=== PATIENT | female | born 1945 | race Caucasian/White ===

== ENCOUNTER 2016-11-04 18:23 | Inpatient (IN) | payer MEDICARE ==
[~2016-11-04] VITALS: Ht 160 cm; Wt 59.9 kg
[2016-11-04 20:26] LABS: BASOPHILS 0.3 % (0-2); EOSINOPHILS 0.4 % (0-7); HEMATOCRIT 36.9 % (36.0-48.0); HEMOGLOBIN 12.4 g/dL (12-16); IMMATURE GRANULOCYTES 0.3 % (0-5); LYMPHOCYTES 11.2 % (15-50); MCH 31.9 pg (26.0-34.0); MCHC 33.6 g/dL (31.0-37.0); MCV 94.9 fL (80.0-100.0); MONOCYTES 6.2 % (2-11); NEUTROPHILS 81.6 % (40-80); PLATELET COUNT 222 10x3/uL (130-400); RBC 3.89 10x6/uL (4.00-5.40); RDW 12.6 % (11.5-14.5); WBC 11.5 10x3/uL (4.8-10.8)
[2016-11-04 20:36] LABS: CALC OSMOLALITY 285 mosm/kg (275-300); CARBON DIOXIDE 27.1 mmol/L (21.0-32.0); CHLORIDE - SERUM 106 mmol/L (98-107); CREATININE - SERUM 0.6 mg/dL (0.6-1.3); GLUCOSE 120 mg/dL (74-106); POTASSIUM - SERUM 3.3 mmol/L (3.5-5.1); SODIUM 143 mmol/L (136-145); UREA NITROGEN 12 mg/dL (7-18); eGFR NON AFRICAN AMERICAN > 90 mL/min (90-120)
--- NOTE | 2016-11-04 20:50 | NUR ---
PT ARRIVED TO FLOOR VIA STRETCHER ESCORTED BY ER STAFF. TRANSFERRED TO BED AND ORIENTED TO ROOM.
--- NOTE | 2016-11-04 21:27 | NUR ---
16 F CULP CATHETER PLACED WITH IMMEDIATE RETURN OF YELLOW URINE. CONNECTED TO IV FLUIDS - NS @ 75ML / HR. HOLD LOVENOX PER DR FELICIANO.
--- NOTE | 2016-11-04 21:28 | NUR ---
PT CONSENTED FOR SURGERY.
--- NOTE | 2016-11-04 21:28 | NUR ---
PRE-OP MEDICATIONS GIVEN PO WITH SIPS OF WATER.
[2016-11-05] VITALS (12 sets, daily range): BP systolic 90–145; BP diastolic 29–54; Ht 160 cm; Wt 59.9 kg
--- NOTE | 2016-11-05 01:50 | NUR ---
REPORT CALLED FROM SURGERY.
--- NOTE | 2016-11-05 01:59 | NUR ---
PT RETURNED FROM SURGERY.
--- NOTE | 2016-11-05 02:03 | NUR ---
RADIOLOGY HERE TO PERFORM XRAY.
[2016-11-05] MEDS ORDERED: TUMS500 MG PO (02:37)
--- NOTE | 2016-11-05 02:38 | NUR ---
GAVE ZOFRAN FOR PT C/O NAUSEA. WILL MONITOR FOR EFFECTIVENESS. CALL LIGHT WITHIN REACH.
--- NOTE | 2016-11-05 07:16 | NUR ---
Patient Name: DORA DUFFY Admission Status: ER Accout number: [id number] Admission Date: 11-04-2016 : 1945 Admission Diagnosis: Attending: HILDA Current LOS: 1 Anticipated DC Date: 11-08-2016 Planned Disposition: Home with Home Health Primary Insurance: MEDICARE A & B Discharge Planning Comments: CM MET WITH PATIENT REGARDING D/C NEEDS AND PLANS. PATIENT STATED SHE LIVES WITH HER SPOUSE (MICHELLE) AND HE WILL DRIVE HER HOME WHEN DISCHARGED. PATIENT STATED THERE IS A RAMP TO ENTER HOME AND NO STAIRS INSIDE. PATIENT IS INDEPENDENT WITH HER CARE AND SPOUSE IS GETTING HER A WALKER TODAY AND HAS A BUILT IN SHOWER CHAIR AT HOME. PATIENTS PCP IS DR. LERMA AND PHARMACY IS [facility]. PATIENT KNOWS SHE NEEDS REHAB BUT WANTS TO TALK TO HER DOCTOR BEFORE DECIDING HER THERAPY. CM WILL CONTINUE TO FOLLOW PATIENT WITH D/C NEEDS AND PLANS. PCP DR. FLORENTIN ALEXANDRE AT [facility] [phone] MICHELLE (SPOUSE) [phone] Hydraulic Operator: Ann Gonzalez Is the patient Alert and Oriented? Yes 0 * How many steps to enter\exit or inside your home? RAMP 0 * PCP DR. LERMA 0 * Pharmacy [facility] AT [facility] 0 * Preadmission Environment Home with Family 0 * ADLs Independent 0 * Equipment Walker 0 * Other Equipment BUILT IN SHOWER CHAIR 0 * List name and contact numbers for known caregivers / representatives who currently or will assist patient after discharge: MICHELLE (SPOUSE) [phone] 0 * Community resources currently utilized None 0 * Additional services required to return to the preadmission environment? Yes 0 * Can the patient safely return to the preadmission environment? Yes 0 * Has this patient been hospitalized within the prior 30 days at any hospital? No 0 Grand Total: 0
--- NOTE | 2016-11-05 07:30 | NUR ---
RECIEVED PT DURING WALKING ROUNDS. PT RESTING IN BED WITH COMPLAINTS OF SLIGHT PAIN IN THE LEFT HIP OF A 4 ON A SCALE OF 1-10. ASSESSMENT DONE PER FLOWSHEET. BED IN LOW POSITION AND CALL LIGHT WITHIN REACH. WILL CONTINUE TO MONITOR.
--- NOTE | 2016-11-05 08:55 | NUR ---
CULP CATH REMOVED PER ORDER AT THIS TIME. PT TOLERATED WELL. 250CC EMPTIED. BED IN LOW POSITION AND CALL LIGHT WITHIN REACH. WILL CONTINUE TO MONITOR.
[2016-11-05 09:36] LABS: HEMATOCRIT 23.7 % (36.0-48.0)
[2016-11-05 09:43] LABS: HEMOGLOBIN 7.9 g/dL (12-16)
--- NOTE | 2016-11-05 11:08 | OP ---
PATIENT NAME: DORA HARRISON MEDICAL RECORD: [id number] :[birth year] LOCATION: D.2226 ADMISSION DATE:11/04/16 SURGEON: TERRY FELICIANO DO DATE OF OPERATION: 11/04/2016 PROCEDURE PERFORMED: Left total hip arthroplasty. PREOPERATIVE DIAGNOSIS: Left displaced femoral neck fracture. POSTOPERATIVE DIAGNOSIS: Left displaced femoral neck fracture. INDICATIONS: Ms. Harrison is a 71-year-old active female, who tripped over a sidewalk today and fell onto her left hip. She had immediate pain and could not bear weight. She has not had hip pain prior to this; however, she is very active. She was then taken to the Emergency Room and seen there and seemed to have a left displaced femoral neck fracture. She had been n.p.o. since noon and decided to proceed forth with her surgery. The decision to give a total hip was made due to the fact that she is active versus doing sameer hip arthroplasty. The risks and benefits of surgery were discussed with her and her , which were present as well as her daughter and they said that proceed forth with the procedure. SURGEON: Terry Feliciano DO. DESCRIPTION OF PROCEDURE: The patient was taken to PACU, marked, and consents were signed. She was then taken to the operative suite, she was given general anesthesia and intubated by anesthesia. She was then placed on the table and a timeout was performed. All parties were in agreement this was correct side and site. The patient was given 1 gram of Ancef preoperatively. After a timeout was performed and everyone is in agreement, the procedure began. A 10-cm incision was made over the tensor fascia ester and dissected carefully down. Incision was made with a 10 blade scalpel and then further down, used a plasma knife down to the fascia with TFL, thus TFL was then cut through with the plasma blade and the anterior fascia was lifted up and off the muscle belly and retractors then put into place. At that time, the rectus muscle was identified and the fascia over it was released and then the fascia just over the ascending branch of the lateral femoral circumflex was removed and the artery and the 2 veins that run along with it, the Aquamantys was used to coagulate them and plasma was used to get through them. Then, the hip capsule was identified and capsulotomy was performed. The fracture was noted at the femoral neck and the left femoral head was extracted at that time and sized. We then began to prep the acetabulum for the acetabular component of the total hip and medialized and then reamed up to a 45 and implanted a 46 cup porous-coated and it was seen to be in good position via x-ray. Then, mary the attention to the femur and the leg was extended and abducted and externally rotated as well to present the femur. A cut was made to freshen up the fracture to be more amenable to the insertion and placement of an implant in the femoral stem. We then began with a InCorta cutter and canal finder, which was done and broaching. We broached up and put a size 12 stem in and was seen to be in varus and that stem was taken out and lateralized more the proximal femur and a 15-stem ended up being put in with Taperloc stem which seemed to be in good position on x-ray and the femur was checked and had no fractures distally either in 40 cup with a minus 6 neck was then placed seemed to be in good position and leg lengths were measured as well and seemed to be adequate. At that time, the site was irrigated and there was no capsular closure done at this time due to the lack of OPERATIVE REPORT [id number] RAY,DORA good thick capsule. The wound was thoroughly irrigated at that time and the fascia of the tensor fascia ester was closed via 0 Vicryl in a [id number] stitches and running locking stitch. The skin was also closed with 2-0 Vicryl in an inverted interrupted fashion and the skin was closed with 4-0 Monocryl and Dermabond was placed over the wound. A Telfa and Tegaderm was placed over the wound. The patient was awakened in the operating room in stable condition. She was typed and crossed for 2 units. Her hematocrit was 26 and estimated blood loss was 1600 mL. She is in PACU for recovery and postoperative x-rays were done there. TRANSINT:[id number] Voice Confirmation ID: [id number] DOCUMENT ID: [id number] TERRY FELICIANO DO at 1108 CC: [id number] DICTATION DATE: 11/05/16140 SUPERVISOR CAR AND YARD: 11/05/16 022 ADM IN [facility] [address] [place] [address]
--- NOTE | 2016-11-05 11:45 | NUR ---
CALL PLACED TO SURGERY AT APPROX [address] FELICIANO ABOUT PT FEELING DIZZY AND LAB RESULTS, DR. FELICIANO ON THE FLOOR AT THIS TIME. PT DOES NOT WANT TO RECIEVE BLOOD UNLESS ABSOULTELY NECESSARY. DR. FELICIANO INFORMED ME TO CALL HIM IF PT HAS ANY CHANGES. WILL CONTINUE TO MONITOR PT. PT SITTING IN CHAIR. CALL LIGHT WITHIN REACH. WILL CONTINUE TO MONITOR.
--- NOTE | 2016-11-05 13:05 | NUR ---
PT PASSED OUT WHEN STANDING UP WITH PT. CALLED INTO ROOM BY VITOR PHYSICAL THERAPIST, PT WAS PALE AND NOT REPSONDING. VITAL SIGNS INITIATED. STIMULATED PT AND PT WOKE UP AND SPOKE. VITAL SIGNS FOLLOWED BP 112/38, 80% O2 ON ROOM AIR, 2L OF O2 APPLIED. 99% ON 2L, RESP 16. SPOKE WITH DR. FELICIANO AT THIS TIME, RECIEVED ORDERS TO CONTACT MEDICAL AND ADMINISTER 1 UNIT OF PRBC'S. PT PLACED BACK IN BED BY PHYSICAL THERAPY. BED IN LOW POSITION AND CALL LIGHT WITHIN REACH. WILL CONTINUE TO MONITOR.
--- NOTE | 2016-11-05 14:05 | NUR ---
FIRST UNIT OF PRBC'S STARTED AT THIS TIME.WITNESSED WITH SERENITY ARVIZU LPN. MONITORED FOR FIRST 15 MINUTES, NO SIGNS OF ACUTE REACTION NOTED. WILL MONITOR PER PROTOCOL.
--- NOTE | 2016-11-05 16:10 | NUR ---
ENTERED PT ROOM AT THIS TIME, NOTED SIGNIFICANT SWELLING TO THE LEFT HIP. ICE APPLIED. RIGHT WRIST IV SWOLLEN, DC'D IV AND BLOOD PRODUCT ADMINISTRATION CONTINUED THROUGH PIV IN THE LEFT AC. DR. FELICIANO NOTIFIED OF SWELLING. WILL CONTINUE TO MONITOR.
[2016-11-05] MEDS ORDERED: HYDROCODON-ACE1 EAC7 PO (16:43)
[2016-11-05] MEDS ORDERED: ELIQUIS2.5 MG PO (16:43)
--- NOTE | 2016-11-05 17:24 | NUR ---
ASSISTED PT TO BEDSIDE COMMODE AT THIS TIME. PT WAS ABLE TO URINATE POST CULP REMOVAL. TRANSFERRED BACK TO BED WITH NO PROBLEMS. WILL CONTINUE TO MONITOR.
--- NOTE | 2016-11-05 18:50 | NUR ---
RISITED IV TO LEFT WRIST AT THIS TIME, 20G X1 ATTEMPT.
--- NOTE | 2016-11-05 20:00 | NUR ---
ASSESMENT PER FLOW SHEET.PT WITHOUT DISTRESS.DRESSING TO LEFT HIP CLEAN,DRY AND INTACT. DENIES PAIN AT PRESENT.ASSIST UP TO BSC AND BACK TO BED.FALL PREVENTION IN PLACE WITH BOX ALARM.DENIES NEEDS.CALL LIGHT IN REACH
[2016-11-06] VITALS (21 sets, daily range): BP systolic 111–145; BP diastolic 34–68
--- NOTE | 2016-11-06 02:46 | NUR ---
RESTING WITHOUT NEEDS,WITHOUT DISTRESS
[2016-11-06 05:44] LABS: BASOPHILS 0.2 % (0-2); EOSINOPHILS 0.1 % (0-7); HEMATOCRIT 20.7 % (36.0-48.0); IMMATURE GRANULOCYTES 0.5 % (0-5); LYMPHOCYTES 17.3 % (15-50); MCH 29.9 pg (26.0-34.0); MCHC 33.8 g/dL (31.0-37.0); MEAN PLATELET VOLUME 10.8 fL (7.4-10.4); MONOCYTES 11.1 % (2-11); NEUTROPHILS 70.8 % (40-80); RDW 16.4 % (11.5-14.5); WBC 8.8 10x3/uL (4.8-10.8)
[2016-11-06 05:53] LABS: MCV 88.5 fL (80.0-100.0); PLATELET COUNT 129 10x3/uL (130-400); RBC 2.34 10x6/uL (4.00-5.40)
[2016-11-06 06:16] LABS: ALBUMIN 2.1 g/dL (3.4-5.0); ALKALINE PHOSPHATASE 44 U/L (46-116); ALT (SGPT) 23 U/L (10-68); CALC OSMOLALITY 274 mosm/kg (275-300); CARBON DIOXIDE 23.6 mmol/L (21.0-32.0); CHLORIDE - SERUM 104 mmol/L (98-107); CREATININE - SERUM 0.5 mg/dL (0.6-1.3); GLUCOSE 141 mg/dL (74-106); POTASSIUM - SERUM 3.1 mmol/L (3.5-5.1); PROTEIN - SERUM 4.7 g/dL (6.4-8.2); SODIUM 137 mmol/L (136-145); UREA NITROGEN 9 mg/dL (7-18); eGFR NON AFRICAN AMERICAN > 90 mL/min (90-120)
--- NOTE | 2016-11-06 07:30 | NUR ---
PATIENT RECEIVED ALERT IN BED TALKING ON PHONE. NO SIGNS OF DISTRESS NOTED. NO NEEDS VOICED. SIDE RAILS UP X2. BED IN LOW POSITION.
--- NOTE | 2016-11-06 08:20 | NUR ---
ALERT IN BED RSTING QUIETLY. NO SIGNS OF DISTRESS NOTED. SCHEDULED MEDICATION AND PRN NORCO FOR PAIN 10 ADMINISTERED. BREAKFAST TRAY SET UP. NO FURTHER NEEDS VOICED. SIDE RAILS UP X2. BED IN IN LOW POSITION. CALL LIGHT IN REACH.
--- NOTE | 2016-11-06 09:55 | NUR ---
INCENTIVE SPIROMETER AND TEACHING ON USE PROVIDED. STATES UNDERSTANDING. DEMONSTRATES CORRECT USE.
--- NOTE | 2016-11-06 10:03 | NUR ---
FIRST UNIT PRBC INITIATED PER ORDER TO LEFT WRIST IV. IV PATENT. NO REDNESS OR INFLAMMATION NOTED. VITAL SIGNS STABLE. FAMILY PRESENT AT BEDSIDE. SIDE RAILS UP X2. BED IN LOW POSITION. CALL LIGHT IN REACH.
--- NOTE | 2016-11-06 12:48 | NUR ---
FIRST UNIT PRBC COMPLETE. WELL TOLERATED. VITAL SIGNS STABLE. FAMILY AT BEDSIDE. SIDE RAILS UP X2. BED IN LOW POSITION. CALL LIGHT IN REACH.
--- NOTE | 2016-11-06 13:55 | NUR ---
SECOND UNIT PRBC INITIATED. VITAL SIGNS STABLE. IV PATENT. DENIES NEEDS. FAMILY AT BEDSIDE. SIDE RAILS UP X2. BED IN LOW POSITION. CALL LIGHT IN REACH.
--- NOTE | 2016-11-06 17:10 | NUR ---
PATIENT REPOSITIONED IN BED. TOLERATED WELL. DINNER TRAY SET UP. PRBC COMPLETE. VITAL SIGNS STABLE. SIDE RAILS UP X2. BED IN LOW POSITION. CALL LIGHT IN REACH.
--- NOTE | 2016-11-06 19:30 | NUR ---
ASSISTED PT TO BSC AND BACK TO BED. BED IN LOWEST POSITION AND CALL LIGHT WITHIN REACH. ENCOURAGED THE PT TO CALL IF SHE HAS FURTHER NEEDS.
[2016-11-07] VITALS: BP 142/50
[2016-11-07 06:48] LABS: BASOPHILS 0.2 % (0-2); EOSINOPHILS 0.1 % (0-7); IMMATURE GRANULOCYTES 0.4 % (0-5); LYMPHOCYTES 12.6 % (15-50); MCH 30.4 pg (26.0-34.0); MCHC 35.7 g/dL (31.0-37.0); MEAN PLATELET VOLUME 11.1 fL (7.4-10.4); NEUTROPHILS 75.7 % (40-80); PLATELET COUNT 121 10x3/uL (130-400); RDW 15.7 % (11.5-14.5); WBC 10.3 10x3/uL (4.8-10.8)
[2016-11-07 06:51] LABS: HEMOGLOBIN 8.9 g/dL (12-16); RBC 2.93 10x6/uL (4.00-5.40)
[2016-11-07 06:52] LABS: HEMATOCRIT 24.9 % (36.0-48.0)
[2016-11-07 07:08] LABS: ALBUMIN 1.9 g/dL (3.4-5.0); ALKALINE PHOSPHATASE 56 U/L (46-116); BILIRUBIN - TOTAL 0.52 mg/dL (0.2-1.3); CALCIUM 7.4 mg/dL (8.5-10.1); CARBON DIOXIDE 28.2 mmol/L (21.0-32.0); CHLORIDE - SERUM 102 mmol/L (98-107); CREATININE - SERUM 0.5 mg/dL (0.6-1.3); GLUCOSE 127 mg/dL (74-106); PROTEIN - SERUM 5.2 g/dL (6.4-8.2); SODIUM 136 mmol/L (136-145); eGFR NON AFRICAN AMERICAN > 90 mL/min (90-120)
[2016-11-07 07:20] LABS: CALC OSMOLALITY 271 mosm/kg (275-300); UREA NITROGEN 6 mg/dL (7-18)
[2016-11-07 07:21] LABS: ALT (SGPT) 60 U/L (10-68); POTASSIUM - SERUM 2.7 mmol/L (3.5-5.1)
--- NOTE | 2016-11-07 07:35 | NUR ---
PATIENT RECEIVED ALERT IN LOW LANDIS POSITION. NO SIGNS OF DISTRESS NOTED. DENIES NEEDS. SIDE RAILS UP X2. BED IN LOW POSITION. CALL LIGHT IN REACH.
[2016-11-07 07:52] VITALS: BP 137/53
--- NOTE | 2016-11-07 09:02 | NUR ---
ALERT IN HIGH LANDIS POSITION. NO SIGNS OF DISTRESS NOTED. SCHEDULED MEDICATION ADMINISTERED. DENIES NEEDS. SIDE RAILS UP X2. BED IN LOW POSITION. CALL LIGHT IN REACH.
--- NOTE | 2016-11-07 11:00 | NUR ---
SITTING UP IN CHAIR AT BEDSIDE. NO SIGNS OF DISTRESS NOTED. SCD SLEEVES AND EJ HOSE REMOVED. SKIN TO LOWER LEGS WNL. DENIES NEEDS. CALL LIGHT IN REACH.
[2016-11-07 12:35] VITALS: BP 130/50
--- NOTE | 2016-11-07 14:30 | NUR ---
PATIENT IN MID LANDIS POSITION RESTING QUIETLY WITH EYES CLOSED. RESPIRATIONS EVEN AND UNLABORED. SIDE RAILS UP X2. BED IN LOW POSITION. CALL LIGHT IN REACH.
--- NOTE | 2016-11-07 15:30 | NUR ---
PATIENT SITTING UP IN CHAIR AT BEDSIDE. NO SIGNS OF DISTRESS NOTED. CALL LIGHT IN REACH.
[2016-11-07 15:53] VITALS: BP 106/48
--- NOTE | 2016-11-07 17:30 | NUR ---
ALERT IN BED EATING DINNER. TOLERATING WELL. DENIES NEEDS. SIDE RAILS UP X2. BED IN LOW POSITION. CALL LIGHT IN REACH.
--- NOTE | 2016-11-07 19:30 | NUR ---
PT RESTING IN BED AND DENIES NEEDS AT THIS TIME. BED IN LOWEST POSITION, CALL LIGHT WITHIN REACH, AND BOX ALARM ON AND FUNCTIONING. ENCOURAGED THE PT TO CALL IF SHE HAS NEEDS.
[2016-11-07 20:00] VITALS: BP 129/54
[2016-11-08 04:00] VITALS: BP 100/47
[2016-11-08 05:42] LABS: BASOPHILS 0.1 % (0-2); EOSINOPHILS 0.5 % (0-7); HEMATOCRIT 24.2 % (36.0-48.0); HEMOGLOBIN 8.6 g/dL (12-16); IMMATURE GRANULOCYTES 0.4 % (0-5); LYMPHOCYTES 15.7 % (15-50); MCH 30.7 pg (26.0-34.0); MCHC 35.5 g/dL (31.0-37.0); MCV 86.4 fL (80.0-100.0); MEAN PLATELET VOLUME 10.2 fL (7.4-10.4); MONOCYTES 10.5 % (2-11); NEUTROPHILS 72.8 % (40-80); PLATELET COUNT 145 10x3/uL (130-400); RDW 15.7 % (11.5-14.5); WBC 7.8 10x3/uL (4.8-10.8)
[2016-11-08 06:05] LABS: ALBUMIN 1.7 g/dL (3.4-5.0); ALKALINE PHOSPHATASE 76 U/L (46-116); ALT (SGPT) 90 U/L (10-68); CALC OSMOLALITY 274 mosm/kg (275-300); CALCIUM 7.5 mg/dL (8.5-10.1); CARBON DIOXIDE 27.7 mmol/L (21.0-32.0); CHLORIDE - SERUM 104 mmol/L (98-107); CREATININE - SERUM 0.5 mg/dL (0.6-1.3); GLUCOSE 117 mg/dL (74-106); POTASSIUM - SERUM 3.3 mmol/L (3.5-5.1); PROTEIN - SERUM 5.3 g/dL (6.4-8.2); SODIUM 138 mmol/L (136-145); UREA NITROGEN 8 mg/dL (7-18); eGFR NON AFRICAN AMERICAN > 90 mL/min (90-120)
--- NOTE | 2016-11-08 08:00 | NUR ---
ASSESSMENT COMPLETE. SL TO L WRIST. DRESSING INTACT TO L HIP. SCD'S IN USE TO BILAT LEGS.
[2016-11-08] MEDS ORDERED: BACTRIM DS TABL1 TAB PO (08:16)
[2016-11-08 08:23] VITALS: BP 123/42
--- NOTE | 2016-11-08 10:10 | NUR ---
CM REASSESSMENT NOTE: PATIENT SIGNED THE DENISA FORM WITH [facility] W/PHYSICAL THERAPY. PATIENT IS DISCHARGING HOME TODAY.
[2016-11-08 12:05] VITALS: BP 145/57
--- NOTE | 2016-11-08 12:45 | NUR ---
DISCHARGE TEACHING GIVEN TO PATIENT. SL REMOVED. CATHETER TIP INTACT. SCRIPTS GIVEN TO PATIENT. PATIENT AND VOICED UNDERSTANDING OF DISCHARGE TEACHING.
--- NOTE | 2016-11-08 13:20 | NUR ---
DC'D HOME WITH FAMILY. ESCORTED TO VEHICLE VIA WC BY VOLUNTEER.
== END 2016-11-08 13:20 | disposition home health service (06) | DRG 470 ==
LOC: D.ER 18:23 → D.MS 20:16
PROVIDERS: Family Medicine; ADMIT Orthopaedic Surgery
PROC: 0SRB0JZ Replacement of Left Hip Joint with Synthetic Substitute, Open Approach (ICD-10-PCS; principal; 2016-11-04 22:00)
DX: S72.002A Fracture of unspecified part of neck of left femur, initial encounter for closed fracture (principal); D62 Acute posthemorrhagic anemia; W01.0XXA Fall on same level from slipping, tripping and stumbling without subsequent striking against object, initial encounter; E87.6 Hypokalemia

== ENCOUNTER 2017-10-27 08:20 | Day surgery (SDC) | payer MEDICARE, OTHER ==
[2017-10-26 12:36] LABS: HEMATOCRIT 39.3 % (36.0-48.0); HEMOGLOBIN 13.4 g/dL (12-16); MCH 31.8 pg (26.0-34.0); MCHC 34.1 g/dL (31.0-37.0); MCV 93.1 fL (80.0-100.0); MEAN PLATELET VOLUME 10.2 fL (7.4-10.4); RBC 4.22 10x6/uL (4.00-5.40); RDW 12.4 % (11.5-14.5); WBC 5.9 10x3/uL (4.8-10.8)
[~2017-10-27] VITALS: Ht 160 cm; Wt 61.7 kg
--- NOTE | ~2017-10-27 | OP ---
PATIENT NAME: DORA DUFFY MEDICAL RECORD: [id number] :[birth year] LOCATION:D.OPS ADMISSION DATE: SURGEON: AMI ISSA MD DATE OF OPERATION: 10/27/2017 PREOPERATIVE DIAGNOSES: 1. Bleeding internal hemorrhoid. 2. Arthritis. 3. Osteoporosis. POSTOPERATIVE DIAGNOSES: 1. Bleeding internal hemorrhoid. 2. Arthritis. 3. Osteoporosis. PROCEDURE: Anal exam under anesthesia with single column hemorrhoidectomy. SURGEON: Ami Issa MD REPORT OF PROCEDURE: The patient was placed in the lithotomy position, and the perianal region was prepped and draped in sterile fashion. An anoscope was inserted and a 360-degree inspection was performed. The patient was noted to have a very large pedunculated hemorrhoid/mass at the 12 o'clock position. This was friable and would bleed easily with manipulation. This was grasped and pulled down tightly and a 2-0 chromic was placed in the rectum at the apex of this hemorrhoid. Once this was tied down tightly, then the hemorrhoid itself was excised off of the sphincter muscles using electrocautery. The tissue was inspected and any bleeding that was found was treated with electrocautery. The wound was then irrigated out with normal saline. We took the suture that was placed in the rectum and ran it in a locking fashion out towards the anoderm. At the conclusion of the case, there was a good approximation of the tissue with no signs of any tension. The patient did have some other internal hemorrhoidal vessels visible, but none of these were very large. We irrigated out the anus one last time and then inserted a piece of Gelfoam dipped in Americaine. COMPLICATIONS: None. CONDITION: Stable. ANESTHESIA: General endotracheal. BLOOD LOSS: 30 mL. TRANSINT:[id number] Voice Confirmation ID: [id number] DOCUMENT ID: [id number] AMI ISSA MD at 0918 CC: [id number] DICTATION DATE: 10/27/17 1010 DATA NETWORK ARCHITECT: 10/27/17 1033 [facility] 10/27/17 [id number] [place] [address]
[~2017-10-27 08:20] MED LIST: BACTRIM DS TABL1 TAB PO; BENADRYL25 MG; ELIQUIS2.5 MG PO; HYDROCODON-ACE1 EAC7 PO; MULTIPLE VITAMI1 TA1; MYSOLINE250 MG; OCUVITE TABLET1 TA1 PO; TUMS500 MG PO; VITAMIN D31000 UNIT PO
[2017-10-27] MEDS ORDERED: GLUCOSAMINE & C1 CAP (08:33)
[2017-10-27 08:34] VITALS: BP 139/67; Ht 160 cm; Wt 61.7 kg
[2017-10-27] MEDS ORDERED: HYDROCODONE-APA1 TAB PO (10:06)
== END 2017-10-27 12:40 | disposition home or self-care (01) ==
LOC: D.OPS 08:20 → D.PAN 09:00 → D.OPS 10:00 → D.PAN 10:00 → D.OPS 12:40
PROVIDERS: Anesthesiology
DX: K64.8 Other hemorrhoids (principal); M19.90 Unspecified osteoarthritis, unspecified site; M81.0 Age-related osteoporosis without current pathological fracture; Z01.812 Encounter for preprocedural laboratory examination

== ENCOUNTER → 2019-04-24 10:05 | Outpatient (CLI) | payer MEDICARE, OTHER ==
[2017-10-27 08:34] VITALS: BMI 24.1
[~2019-04-24 10:05] MED LIST changes: +GLUCOSAMINE & C1 CAP; +HYDROCODONE-APA1 TAB PO
== END | disposition home or self-care (01) ==
LOC: D.CT 04-23 09:00
PROVIDERS: ATTEND Internal Medicine Gastroenterology
DX: K76.9 Liver disease, unspecified (principal); K86.2 Cyst of pancreas

== ENCOUNTER → 2019-10-18 20:40 | Outpatient (CLI) | payer MEDICARE, OTHER ==
[2017-10-27 08:34] VITALS: BMI 24.1
== END | disposition home or self-care (01) ==
LOC: D.LABREF 20:40
PROVIDERS: ATTEND Orthopaedic Surgery
DX: M17.12 Unilateral primary osteoarthritis, left knee (principal)

== ENCOUNTER → 2019-10-23 09:31 | Outpatient (CLI) | payer MEDICARE, OTHER ==
[2017-10-27 08:34] VITALS: BMI 24.1
== END | disposition home or self-care (01) ==
LOC: D.US 09:31
PROVIDERS: ATTEND Internal Medicine Gastroenterology
DX: K76.9 Liver disease, unspecified (principal); K86.9 Disease of pancreas, unspecified

== ENCOUNTER 2019-10-31 09:43 | Inpatient (IN) | payer MEDICARE, OTHER ==
[~2019-10-31] VITALS: Ht 160 cm; Wt 63.9 kg
[2019-11-27] MEDS ORDERED: OS-CAL500 MG PO (15:00)
[2019-11-27] MEDS ORDERED: LOPRESSOR25 MG PO (15:01)
[2019-11-28 11:43] LABS: BASOPHILS 0.7 % (0-2); EOSINOPHILS 2.7 % (0-7); HEMATOCRIT 38.8 % (36.0-48.0); IMMATURE GRANULOCYTES 0.1 % (0-5); LYMPHOCYTES 24.1 % (15-50); MCH 31.6 pg (26.0-34.0); MCHC 33.5 g/dL (31.0-37.0); MCV 94.4 fL (80.0-100.0); MEAN PLATELET VOLUME 9.5 fL (7.4-10.4); MONOCYTES 6.7 % (2-11); NEUTROPHILS 65.7 % (40-80); PLATELET COUNT 238 10x3/uL (130-400); RBC 4.11 10x6/uL (4.00-5.40); RDW 12.8 % (11.5-14.5)
[2019-11-28 11:57] LABS: CALC OSMOLALITY 272 mosm/kg (275-300); CALCIUM 8.8 mg/dL (8.5-10.1); CARBON DIOXIDE 28.5 mmol/L (21.0-32.0); CHLORIDE - SERUM 103 mmol/L (98-107); CREATININE - SERUM 0.6 mg/dL (0.6-1.3); GLUCOSE 99 mg/dL (74-106); POTASSIUM - SERUM 4.5 mmol/L (3.5-5.1); SODIUM 137 mmol/L (136-145); UREA NITROGEN 11 mg/dL (7-18); eGFR NON AFRICAN AMERICAN > 90 mL/min (90-120)
[2019-11-28 11:58] LABS: BILIRUBIN NEGATIVE (NEGATIVE); INR 4.28 (0.85-1.17); KETONE NEGATIVE (NEGATIVE); NITRITE POSITIVE (NEGATIVE); PROTIME 40.3 SECONDS (11.6-15.0); UROBILINOGEN NORMAL (NORMAL)
[2019-11-28 11:59] LABS: APTT 101.4 SECONDS (22.8-39.4); BACTERIA MANY /hpf (NEGATIVE); EPITHELIAL CELLS 0-5 /hpf (0-5); RED CELLS - URINE 0-5 /hpf (0-5); WHITE CELLS - URINE 25-50 /hpf (NEGATIVE)
[2019-12-04] VITALS (13 sets, daily range): BP systolic 104–149; BP diastolic 42–77; BMI 24.9; BMI 25.0
[2019-12-04] MEDS ORDERED: TUMERIC (08:18)
[2019-12-04] MEDS ORDERED: FOLBIC RF TABL1 EACH PO (08:21)
[2019-12-04] MEDS ORDERED: JANTOVEN5 MG PO (08:21)
[2019-12-04] MEDS ORDERED: METAMUCIL PACKE1 PKT PO (08:23)
[2019-12-04] MEDS ORDERED: CBD OIL (08:24)
[2019-12-04] MEDS ORDERED: PROLIA INJ 660 MG/M1 SC (08:24)
--- NOTE | 2019-12-04 09:01 | NUR ---
REPEATED ABNORMAL LAB VALUES, AWAITING RESULTS.
[2019-12-04 09:17] LABS: INR 1.03 (0.85-1.17); PROTIME 13.4 SECONDS (11.6-15.0)
--- NOTE | 2019-12-04 09:35 | NUR ---
CAUTERY PAD PLACED ON RIGHT THIGH. LOT#[id number] EXP. 06/11/2021. PLASMA BLADE USED ON SETTING 6/8. AQUAMANIS USED ON SETTING 170
[2019-12-04 10:44] LABS: BACTERIA FEW /hpf (NONE SEEN); BILIRUBIN NEGATIVE (NEGATIVE); EPITHELIAL CELLS RARE /hpf (0-5); KETONE NEGATIVE (NEGATIVE); NITRITE NEGATIVE (NEGATIVE); RED CELLS - URINE 0-5 /hpf (0-5); UROBILINOGEN NORMAL (NORMAL); WHITE CELLS - URINE NSEEN /hpf (0-5)
--- NOTE | 2019-12-04 17:21 | MORECARE ---
CASE MANAGEMENT DISCHARGE SUMMARY PATIENT: DORA DUFFY UNIT: [id number] ADM DATE: 12/04/19 AGE: 74 : [birth year] SEX: F ROOM/BED: D.1210 AUTHOR: SUKHI DELCID PHYSICIAN: REFERRING PHYSICIAN: KOREY FELICIANO DO DATE OF SERVICE: 12/04/19 Discharge Plan Patient Name: DORA DUFFY Facility: [facility]:[place] : 1945 Planned Disposition: Anticipated Discharge Date: Discharge Date: Expected LOS: Initial Reviewer: [email or web address] Initial Review Date: 12/04/2019 Generated: 12/04/19 6:21 pm Patient Name: DORA DUFFY Page [phone] at 1721 All edits/amendments must be made on the electronic document DICTATION DATE: 12/04/191720 PAINT TECHNICIAN: SHENG 12/04/191720 RPT#: [id number] DC DATE: STATUS: ADM IN [facility] [address] [place] [address] END OF REPORT
--- NOTE | 2019-12-04 18:03 | MORECARE ---
CASE MANAGEMENT DISCHARGE SUMMARY PATIENT: JACQUELYN HARRISON UNIT: [id number] ADM DATE: 12/04/19 AGE: 74 : 44 SEX: F ROOM/BED: D.1210 AUTHOR: SUKHI DELCID PHYSICIAN: REFERRING PHYSICIAN: KOREY FELICIANO DO DATE OF SERVICE: 12/04/19 Discharge Plan Patient Name: JACQUELYN HARRISON Facility: [facility]:[place] : 1945 Planned Disposition: Anticipated Discharge Date: Discharge Date: Expected LOS: Initial Reviewer: [email or web address] Initial Review Date: 12/04/2019 Generated: 12/04/19 7:02 pm DCP- Discharge Planning Updated by MARCIN: Kera Jenkins on 12/04/19 4:[address] DME: has not been delivered as yet. Patient will require CPM, BSC, ice therapy. CM met with patient briefly, (sleepy) to discuss DC plans/needs. Patient lives with her spouse, Emergency contact: Ming Harrison, spouse ([phone]). independently in their home. Stairs: ramp w/rails, built-in shower bench, grab bars. PCP: Dr. Flores. [facility]acy: [facility]. DME: has not been delivered as yet. Discussed HHS, OP therapy, SNF, Rehab. Patient has used [facility], in past and would like to use them again. CM will visit again, when patient is more alert. Coverage Notice Reviewer: [email or web address] - Kera Jenkins Notice Issued Date-Time: 12/04/2019 18:00 Notice Type: Patient Choice Letter Notice Delivered To: Patient Relationship to Patient: Self Burglar Alarm Installer Name: Jacquelyn Elena Delivery Method: HAND - Hand Delivered Amanda Days: Prior Verbal Notification: Recipient Understood Notice: Yes Recipient Signature: Yes Med Rec Note Co-signed by Attending: Coverage Notice Comment: Patient choice for [facility] signed/delivered to patient. Original to chart. Last DP export: 12/04/19 4:21 pm Patient Name: JACQUELYN HARRISON Page [phone] at 1803 All edits/amendments must be made on the electronic document DICTATION DATE: 12/04/191801 SERVICE CLEANER: SHENG 12/04/191801 RPT#: [id number] DC DATE: STATUS: ADM IN [facility] [address] [place] [address] END OF REPORT
--- NOTE | 2019-12-04 18:10 | MORECARE ---
CASE MANAGEMENT DISCHARGE SUMMARY PATIENT: JACQUELYN HARRISON UNIT: [id number] ADM DATE: 12/04/19 AGE: 74 : 44 SEX: F ROOM/BED: D.1210 AUTHOR: SUKHI DELCID PHYSICIAN: REFERRING PHYSICIAN: KOREY FELICIANO DO DATE OF SERVICE: 12/04/19 Discharge Plan Patient Name: JACQUELYN HARRISON Facility: [facility]:[place] : 1945 Planned Disposition: Anticipated Discharge Date: Discharge Date: Expected LOS: Initial Reviewer: [email or web address] Initial Review Date: 12/04/2019 Generated: 12/04/19 7:10 pm DCP- Discharge Planning Updated by MARCIN: Kera Jenkins on 12/04/19 4:[address] DME: has not been delivered as yet. Patient will require CPM, BSC, ice therapy. CM met with patient briefly, (sleepy) to discuss DC plans/needs. Patient lives with her spouse, Emergency contact: Ming Harrison, spouse ([phone]). independently in their home. Stairs: ramp w/rails, built-in shower bench, grab bars. PCP: Dr. Flores. Pharmacy: [facility]. DME: has not been delivered as yet. Discussed HHS, OP therapy, SNF, Rehab. Patient has used [facility], in past and would like to use them again. CM will visit again, when patient is more alert. Coverage Notice Reviewer: [email or web address] - Kera Jenkins Notice Issued Date-Time: 12/04/2019 18:00 Notice Type: Patient Choice Letter Notice Delivered To: Patient Relationship to Patient: Self Transition Advisor Name: Jacquelyn Elena Delivery Method: HAND - Hand Delivered Amanda Days: Prior Verbal Notification: Recipient Understood Notice: Yes Recipient Signature: Yes Med Rec Note Co-signed by Attending: Coverage Notice Comment: Patient choice for [facility] signed/delivered to patient. Original to chart. Last DP export: 12/04/19 5:03 pm Patient Name: JACQUELYN HARRISON Page [phone] at 1810 All edits/amendments must be made on the electronic document DICTATION DATE: 12/04/191809 MICROWAVE SUPERVISOR: SHENG 12/04/191809 RPT#: [id number] DC DATE: STATUS: ADM IN [facility] [address] [place] [address] END OF REPORT
--- NOTE | 2019-12-04 20:00 | NUR ---
ALERT RESTING IN BED CPM IN USE, DENIES PAIN OR NEEDS AT THIS TIME, SEE SHIFT ASSESSMENT, CALL LIGHT IN REACH
[2019-12-05 00:54] VITALS: BP 106/33
[2019-12-05 06:09] VITALS: BP 105/53
[2019-12-05 06:30] LABS: BASOPHILS 0.2 % (0-2); EOSINOPHILS 0.1 % (0-7); HEMATOCRIT 29.2 % (36.0-48.0); HEMOGLOBIN 9.7 g/dL (12-16); IMMATURE GRANULOCYTES 0.2 % (0-5); LYMPHOCYTES 15.5 % (15-50); MCH 31.1 pg (26.0-34.0); MCHC 33.2 g/dL (31.0-37.0); MCV 93.6 fL (80.0-100.0); MEAN PLATELET VOLUME 9.7 fL (7.4-10.4); MONOCYTES 10.6 % (2-11); NEUTROPHILS 73.4 % (40-80); PLATELET COUNT 268 10x3/uL (130-400); RBC 3.12 10x6/uL (4.00-5.40); RDW 12.8 % (11.5-14.5); WBC 10.1 10x3/uL (4.8-10.8)
[2019-12-05 07:25] LABS: CREATININE - SERUM 0.8 mg/dL (0.6-1.3)
[2019-12-05 07:26] LABS: ANION GAP 12.7 mmol/L (8-16); POTASSIUM - SERUM 3.7 mmol/L (3.5-5.1)
--- NOTE | 2019-12-05 07:59 | OP ---
PATIENT NAME: DORA HARRISON MEDICAL RECORD: [id number] :43 LOCATION:D.M3 D.1210 ADMISSION DATE:12/04/19 SURGEON: TERRY FELICIANO DO DATE OF OPERATION: 12/04/2019 PROCEDURE PERFORMED: Left total knee arthroplasty. PREOPERATIVE DIAGNOSIS: Left knee osteoarthritis. POSTOPERATIVE DIAGNOSIS: Left knee osteoarthritis. INDICATIONS: Ms. Harrison is a 74-year-old female who is well known to me has had left knee pain for quite some time. She has been going through injections and all manner of nonoperative treatment to no avail. She was tried of dealing with the pain and further affecting her activities of daily living and wanted something done surgically. I informed her of the risks of this including infection, bleeding, damage to nerves and vessels, fracture, continued pain, arthrofibrosis, blood clots, and even and she signed the consent. SURGEON: Terry Feliciano DO DESCRIPTION OF PROCEDURE: The patient was taken to the operative suite, laid in the supine position, given general anesthetic and LMA was placed. The left lower extremity was then prepped and draped in sterile fashion. She had been given a gram of Ancef and 80 mg of gentamicin preoperatively. After the left lower extremity was prepped and draped in sterile fashion. A time-out was performed, everyone was in agreement with the correct site, side, patient and procedure. I then began by making an incision down through the skin to the capsule, did a medial parapatellar approach to the knee with a fresh 10 blade scalpel and everted the patella. I removed part of the fat pad and milled down the patella for an implant. I then flexed the knee up and entered the femoral canal and through the intramedullary guide up in the distal femur cutting block, I cut the distal femur. I then exposed the proximal tibia, measured off the low side, which was in this case the lateral side of the tibial plateau and removed the proximal tibia cutting through the guide and then removed the menisci, brought the knee into an extension and coagulated any vessels that were bleeding. I then put in the 10 extension block and fit very well. I then flexed up the knee and sized the femur to be a 62.5 and I pinned the 62.5. I put the 62.5, 4-in-[address] and a cut through the block after ensuring there was no notching with any joint. I then impacted the 62.5 trial. Once the trial was on, floated in the tibial tray with a poly, marked the rotation. I then drilled for the lug holes in the femur and on the patella through a guide. We then exposed the tibia and sized it to be 71. I reamed and punched it and put extra holes in the tibia for the cement. This was irrigated off and then the cement was mixed, put in the tibia and on the implant, impacted in place. Excess cement was removed. The femur was then impacted on and then a 10 poly put in between and the knee brought to extension and the patella was irrigated and the hole was cleaned out with a curette and cement was put in the patella and then on the implant and squeezed into place and held. All the excess cement was removed and the 10% povidone-iodine with 500 mL normal saline solution was placed in the knee and set for 3 minutes and irrigated that out with more than a liter of normal saline. Once that had happened the cement was dry, I then trialed the 12 poly, 12 poly fit the best in flexion and extension. I put in the 12 anterior stabilized poly and locked it into place. I then irrigated one more time and put in the [place] and vancomycin and tobramycin OPERATIVE REPORT [id number] DORA HARRISON powder and then closed the capsule with Gracie Huff, certified certified ophthalmic surgical assistant with #1 pops in a dcrnqz-ho-zjtln fashion. He then closed the skin with 2-0 Vicryl in inverted interrupted fashion and placed the ZipLine on the knee and dressed it with Adaptic, 4 x 4s, ABD, Webril, Billy wrap and EJ hose stocking placed up to the knee. She was then awakened and taken to recovery in stable condition. BLOOD LOSS: Approximately 250 mL. COMPLICATIONS: None. TRANSINT:[id number] Voice Confirmation ID: [id number] DOCUMENT ID: [id number] TERRY FELICIANO DO at 0759 CC: [id number] DICTATION DATE: 12/04/19 1041 AUTHORIZER: 12/04/19 1740 [facility] [place] [id number] [place] [address]
[2019-12-05 08:16] VITALS: BP 141/50
--- NOTE | 2019-12-05 09:00 | NUR ---
PATIENT SITTING UP IN CHAIR WITH NO PROBLEMS. ASSIST TO BR. DOES VERY WELL WALKING WITH WALKER. IV INTACT. CALL LIGHT WITHIN REACH.
--- NOTE | 2019-12-05 10:29 | NUR ---
PATIENT TOOK OWN OCUVITE AND METOPROLOL. DROPPED THE METOPROLOL I GAVE HER AND SHE SAID SHE HAD TO TAKE OCUVITE. EXPLAINED TO HER IT WAS NOT ORDERED ON HER EMAR YET BUT SHE TOOK MED ANYWAY. STATED SHE HAD A CERTAIN WAY SHE TOOK HER PILLS. STATED TAKES CALCIUM AND GLUCOSAMINE AT NIGHT. IV INTACT. STATES NO PAIN. ICE TO KNEE. SITTING UP IN CHAIR. CALL LIGHT WITHIN REACH.
[2019-12-05 11:47] VITALS: BP 118/49
--- NOTE | 2019-12-05 11:50 | NUR ---
PATIENT SITTING UP IN CHAIR EATING WITH NO PROLBEMS AT THIS TIME. IV INTACT. FAMILY AT BEDSIDE. CALL LIGHT WITHIN REACH.
[2019-12-05 12:25] LABS: INR 1.08 (0.85-1.17); PROTIME 13.9 SECONDS (11.6-15.0)
[2019-12-05 13:30] VITALS: Ht 160 cm; Wt 63.9 kg
[2019-12-05] MEDS ORDERED: HYDROCODON-ACE1 EAC7 PO (13:54)
[2019-12-05] MEDS ORDERED: LOVENOX40 MG/0.4 SC (13:54)
[2019-12-05] MEDS ORDERED: KEFLEX500 MG PO (13:54)
--- NOTE | 2019-12-05 14:00 | NUR ---
PATIENT DRESSING TO LEFT KNEE CHANGED ORDERED. INCISION CLEAN AND DRY. NO REDNESS OR SIGNS OF INFECTION. NEW DRESSING PLACED AND WILLIAN WRAP APPLIED OVER DRESSING TO KNEE. PATIENT TOLERATED WITH NO PAIN. IV REMOVED WITH CATH TIP INTACT. PATIENT WAITING ON DC PAPERS. CALL LIGHT WITHIN REACH. FAMILY AT BEDSIDE.
--- NOTE | 2019-12-05 14:08 | MORECARE ---
CASE MANAGEMENT DISCHARGE SUMMARY PATIENT: JACQUELYN HARRISON UNIT: [id number] ADM DATE: 12/04/19 AGE: 74 : 44 SEX: F ROOM/BED: D.1210 AUTHOR: SUKHI DELCID PHYSICIAN: REFERRING PHYSICIAN: KOREY FELICIANO DO DATE OF SERVICE: 12/05/19 Discharge Plan Patient Name: JACQUELYN HARRISON Facility: [facility]:[place] : 1945 Planned Disposition: Home Health Service Anticipated Discharge Date: Discharge Date: Expected LOS: Initial Reviewer: [email or web address] Initial Review Date: 12/04/2019 Generated: 12/05/19 3:07 pm DCP- Discharge Planning Updated by [email or web address]: Kera Jenkins on 12/04/19 4:[address] DME: has not been delivered as yet. Patient will require CPM, BSC, ice therapy. CM met with patient briefly, (sleepy) to discuss DC plans/needs. Patient lives with her spouse, Emergency contact: Ming Harrison, spouse ([phone]). independently in their home. Stairs: ramp w/rails, built-in shower bench, grab bars. PCP: Dr. Flores. [facility]acy[facility]. DME: has not been delivered as yet. Discussed HHS, OP therapy, SNF, Rehab. Patient has used [facility], in past and would like to use them again. CM will visit again, when patient is more alert. Coverage Notice Reviewer: [id number] - Kera Jenkins Notice Issued Date-Time: 12/04/2019 18:00 Notice Type: Patient Choice Letter Notice Delivered To: Patient Relationship to Patient: Self Loan Reviewer Name: Jacquelyn Elena Delivery Method: HAND - Hand Delivered Amanda Days: Prior Verbal Notification: Recipient Understood Notice: Yes Recipient Signature: Yes Med Rec Note Co-signed by Attending: Coverage Notice Comment: Patient choice for [facility] signed/delivered to patient. Original to chart. Last DP export: 12/04/19 5:10 pm Patient Name: JACQUELYN HARRISON Page [phone] at 1408 All edits/amendments must be made on the electronic document DICTATION DATE: 12/05/191406 VENDOR QUALITY SUPERVISOR: SHENG 12/05/191406 RPT#: [id number] DC DATE: STATUS: ADM IN [facility] [address] [place] [address] END OF REPORT
--- NOTE | 2019-12-05 14:17 | MORECARE ---
CASE MANAGEMENT DISCHARGE SUMMARY PATIENT: JACQUELYN HARRISON UNIT: [id number] ADM DATE: 12/04/19 AGE: 74 : 44 SEX: F ROOM/BED: D.1210 AUTHOR: BHAVIN,SUKHI PHYSICIAN: REFERRING PHYSICIAN: KOREY FELICIANO DO DATE OF SERVICE: 12/05/19 Discharge Plan Patient Name: JACQUELYN HARRISON Facility: [facility]:[place] : 1945 Planned Disposition: Home Health Service Anticipated Discharge Date: Discharge Date: Expected LOS: Initial Reviewer: [email or web address] Initial Review Date: 12/04/2019 Generated: 12/05/19 3:16 pm Comments DCP- Discharge Planning Updated by [email or web address]: Ca Sosa on 12/05/19 1:[address] Patient Name: JACQUELYN HARRISON Admission Status: Urgent Accout number: [id number] Admission Date: 12-04-2019 : 1945 Admission Diagnosis:UNILATERAL PRIMARY OSTEOARTHRITIS, LEFT KNEE Attending: KOREY FELICIANO Current LOS: 1 Anticipated DC Date: Planned Disposition: Home Health Service Primary Insurance: MEDICARE A & B Discharge Planning Comments: After obtaining verbal consent, CM met with patient and spouse to discuss discharge planning / needs. Patient states she plans to discharge to home with [facility] and Miley Arizmendi as her physical therapist. CM spoke with Felton at [employer] [facility] [place] [place]. Felton states he is delivering CPM and Walker to patient tomorrow morning. Patient states they have an old walker from another family member that she will use until tomorrow morning. States home environment is safe. Denies any discharge planning needs at this time. Patient signed DC IMM. CM called and spoke with Hunter at [email or web address] [facility] about referral. Faxed records as indicated. Hunter will call back with [facility] for home health admission. CM will continue to follow and assist as needed with discharge planning / needs. Computer Systems Information Director: Ca Sosa DCP- Discharge Planning Updated by [id number]: Kera Jenkins on 12/04/19 4:[address] DME: has not been delivered as yet. Patient will require CPM, BSC, ice therapy. CM met with patient briefly, (sleepy) to discuss DC plans/needs. Patient lives with her spouse, Emergency contact: Ming Harrison, spouse ([phone]). independently in their home. Stairs: ramp w/rails, built-in shower bench, grab bars. PCP: Dr. Flores. [facility]acy[facility]. DME: has not been delivered as yet. Discussed HHS, OP therapy, SNF, Rehab. Patient has used [facility], in past and would like to use them again. CM will visit again, when patient is more alert. DCPIA - Discharge Planning Initial Assessment Updated by [email or web address]: Ca Sosa on 12/05/19 2:12 pm * Is the patient Alert and Oriented? Yes * How many steps to enter\exit or inside your home? ramp * PCP [facility] * [facility]acy [facility] [place] * Preadmission Environment Home with Family * ADLs Independent * Equipment Bedside Commode Grab Bars Shower Chair * Other Equipment CPM AND WALKER BEING DELIVERED TO THE HOME BY [facility] * List name and contact numbers for known caregivers / representatives who currently or will assist patient after discharge: Ming Harrison, spouse, * Verbal permission to speak to the caregivers and representatives has been obtained from the patient. Yes * Community resources currently utilized None * Additional services required to return to the preadmission environment? Yes * Can the patient safely return to the preadmission environment? Yes * Has this patient been hospitalized within the prior 30 days at any hospital? No Coverage Notice Reviewer: [id number] Yusef Jenkins Notice Issued Date-Time: 12/04/2019 18:00 Notice Type: Patient Choice Letter Notice Delivered To: Patient Relationship to Patient: Self Container Filler Name: Jacquelyn Elena Delivery Method: HAND - Hand Delivered Amanda Days: Prior Verbal Notification: Recipient Understood Notice: Yes Recipient Signature: Yes Med Rec Note Co-signed by Attending: Coverage Notice Comment: Patient choice for [facility] signed/delivered to patient. Original to chart. Reviewer: [id number] - Ca Sosa Notice Issued Date-Time: 12/05/2019 14:00 Notice Type: IM Discharge Notice Notice Delivered To: Family Member Relationship to Patient: Spouse Container Filler Name: Ming Harrison Delivery Method: HAND - Hand Delivered Amanda Days: Prior Verbal Notification: Recipient Understood Notice: Yes Recipient Signature: Yes Med Rec Note Co-signed by Attending: Coverage Notice Comment: Last DP export: 12/05/19 1:08 pm Patient Name: JACQUELYN HARRISON Page [phone] at 1417 All edits/amendments must be made on the electronic document DICTATION DATE: 12/05/191416 REHABILITATION SUPERVISOR: SHENG 12/05/191416 RPT#: [id number] DC DATE: STATUS: ADM IN [facility] [address] [place] [address] END OF REPORT
--- NOTE | 2019-12-05 14:28 | MORECARE ---
CASE MANAGEMENT DISCHARGE SUMMARY PATIENT: JACQUELYN HARRISON UNIT: [id number] ADM DATE: 12/04/19 AGE: 74 : 44 SEX: F ROOM/BED: D.1210 AUTHOR: SUKHI DELCID PHYSICIAN: REFERRING PHYSICIAN: KOREY FELICIANO DO DATE OF SERVICE: 12/05/19 Discharge Plan Patient Name: JACQUELYN HARRISON Facility: [facility]:[place] : 1945 Planned Disposition: Home Health Service Anticipated Discharge Date: Discharge Date: Expected LOS: Initial Reviewer: [email or web address] Initial Review Date: 12/04/2019 Generated: 12/05/19 3:27 pm Comments DCP- Discharge Planning Updated by [email or web address]: Ca Sosa on 12/05/19 1:[address] Patient Name: JACQUELYN HARRISON Admission Status: Urgent Accout number: [id number] Admission Date: 12-04-2019 : 1945 Admission Diagnosis:UNILATERAL PRIMARY OSTEOARTHRITIS, LEFT KNEE Attending: KOREY FELICIANO Current LOS: 1 Anticipated DC Date: Planned Disposition: Home Health Service Primary Insurance: MEDICARE A & B Discharge Planning Comments: After obtaining verbal consent, CM met with patient and spouse to discuss discharge planning / needs. Patient states she plans to discharge to home with [facility] and Miley Arizmendi as her physical therapist. CM spoke with Felton at [employer] [facility] [place]. Felton states he is delivering CPM and Walker to patient tomorrow morning. Patient states they have an old walker from another family member that she will use until tomorrow morning. States home environment is safe. Denies any discharge planning needs at this time. Patient signed DC IMM. CM called and spoke with Hunter at [employer] [facility] about referral. Faxed records as indicated. Hunter will call back with [facility] for home health admission. CM will continue to follow and assist as needed with discharge planning / needs. Track Broom Operator: Ca Sosa DCP- Discharge Planning Updated by [email or web address]: Kera Jenkins on 12/04/19 4:[address] DME: has not been delivered as yet. Patient will require CPM, BSC, ice therapy. CM met with patient briefly, (sleepy) to discuss DC plans/needs. Patient lives with her spouse, Emergency contact: Ming Harrison, spouse ([phone]). independently in their home. Stairs: ramp w/rails, built-in shower bench, grab bars. PCP: Dr. Flores. Pharmacy[facility]. DME: has not been delivered as yet. Discussed HHS, OP therapy, SNF, Rehab. Patient has used [facility], in past and would like to use them again. CM will visit again, when patient is more alert. DCPIA - Discharge Planning Initial Assessment Updated by [email or web address]: Ca Sosa on 12/05/19 2:12 pm * Is the patient Alert and Oriented? Yes * How many steps to enter\exit or inside your home? ramp * PCP [facility] * [facility] [place] * Preadmission Environment Home with Family * ADLs Independent * Equipment Bedside Commode Grab Bars Shower Chair * Other Equipment CPM AND WALKER BEING DELIVERED TO THE HOME BY [facility] * List name and contact numbers for known caregivers / representatives who currently or will assist patient after discharge: Ming Harrison, spouse, * Verbal permission to speak to the caregivers and representatives has been obtained from the patient. Yes * Community resources currently utilized None * Additional services required to return to the preadmission environment? Yes * Can the patient safely return to the preadmission environment? Yes * Has this patient been hospitalized within the prior 30 days at any hospital? No External Providers External Provider: [facility] Next Contact Date: Service Request Date: Service Type: Resolution: Reviewer: Comments: Coverage Notice Reviewer: [id number] Yusef Jenkins Notice Issued Date-Time: 12/04/2019 18:00 Notice Type: Patient Choice Letter Notice Delivered To: Patient Relationship to Patient: Self Crew Leader/Control Room Operator Name: Jacquelyn Elena Delivery Method: HAND - Hand Delivered Amanda Days: Prior Verbal Notification: Recipient Understood Notice: Yes Recipient Signature: Yes Med Rec Note Co-signed by Attending: Coverage Notice Comment: Patient choice for [facility] signed/delivered to patient. Original to chart. Reviewer: [id number] Yusef Sosa Notice Issued Date-Time: 12/05/2019 14:00 Notice Type: IM Discharge Notice Notice Delivered To: Family Member Relationship to Patient: Spouse Crew Leader/Control Room Operator Name: Ming Harrison Delivery Method: HAND - Hand Delivered Amanda Days: Prior Verbal Notification: Recipient Understood Notice: Yes Recipient Signature: Yes Med Rec Note Co-signed by Attending: Coverage Notice Comment: Last DP export: 12/05/19 1:17 pm Patient Name: JACQUELYN HARRISON Page [phone] at 1428 All edits/amendments must be made on the electronic document DICTATION DATE: 12/05/191426 PODIATRIC AIDE: SHENG 12/05/191426 RPT#: [id number] DC DATE: STATUS: ADM IN [facility] [address] [place] [address] END OF REPORT
--- NOTE | 2019-12-05 15:10 | NUR ---
PATIENT RECIEVED DC INSTRUCTIONS. VERBALIZED UNDERSTANDING. NO QUESTIONS AT THIS TIME. IV REMOVED WITH CATH TIP INTACT. PRESCRIPTIONS GIVEN TO PATIENT. ESCORTED OUT OF HOSPITAL TO PRIVATE VEHICLE WITH PERSONAL BELONGINGS BY [facility] .
--- NOTE | 2019-12-06 09:25 | MORECARE ---
CASE MANAGEMENT DISCHARGE SUMMARY PATIENT: JACQUELYN HARRISON UNIT: [id number] ADM DATE: 12/04/19 AGE: 74 : 44 SEX: F ROOM/BED: D.1210 AUTHOR: SUKHI DELCID PHYSICIAN: REFERRING PHYSICIAN: KOREY FELICIANO DO DATE OF SERVICE: 12/06/19 Discharge Plan Patient Name: JACQUELYN HARRISON Facility: [facility]:[place] : 1945 Planned Disposition: Home Health Service Anticipated Discharge Date: Discharge Date: 12/05/2019 Expected LOS: Initial Reviewer: [email or web address] Initial Review Date: 12/04/2019 Generated: 12/06/19 10:24 am Comments DCP- Discharge Planning Updated by [email or web address]: Ca Sosa on 12/05/19 1:[address] Patient Name: JACQUELYN HARRISON Admission Status: Urgent Accout number: [id number] Admission Date: 12-04-2019 : 1945 Admission Diagnosis:UNILATERAL PRIMARY OSTEOARTHRITIS, LEFT KNEE Attending: KOREY FELICIANO Current LOS: 1 Anticipated DC Date: Planned Disposition: Home Health Service Primary Insurance: MEDICARE A & B Discharge Planning Comments: After obtaining verbal consent, CM met with patient and spouse to discuss discharge planning / needs. Patient states she plans to discharge to home with [facility] and Miley Arizmendi as her physical therapist. CM spoke with Felton at [employer] [facility] [place]. Felton states he is delivering CPM and Walker to patient tomorrow morning. Patient states they have an old walker from another family member that she will use until tomorrow morning. States home environment is safe. Denies any discharge planning needs at this time. Patient signed DC IMM. CM called and spoke with Hunter at [employer] [facility] about referral. Faxed records as indicated. Hunter [facility]. CM will continue to follow and assist as needed with discharge planning / needs. Trim Stencil Maker: Ca Sosa DCP- Discharge Planning Updated by [email or web address]: Kera Jenkins on 12/04/19 4:[address] DME: has not been delivered as yet. Patient will require CPM, BSC, ice therapy. CM met with patient briefly, (sleepy) to discuss DC plans/needs. Patient lives with her spouse, Emergency contact: Ming Harrison, spouse ([phone]). independently in their home. Stairs: ramp w/rails, built-in shower bench, grab bars. PCP: Dr. Flores. [facility]. DME: has not been delivered as yet. Discussed HHS, OP therapy, SNF, Rehab. Patient has used [facility], in past and would like to use them again. CM will visit again, when patient is more alert. DCPIA - Discharge Planning Initial Assessment Updated by [id number]: Ca Sosa on 12/05/19 2:12 pm * Is the patient Alert and Oriented? Yes * How many steps to enter\exit or inside your home? ramp * PCP [facility] * [facility]acy [facility] [place] * Preadmission Environment Home with Family * ADLs Independent * Equipment Bedside Commode Grab Bars Shower Chair * Other Equipment CPM AND WALKER BEING DELIVERED TO THE HOME BY [facility] * List name and contact numbers for known caregivers / representatives who currently or will assist patient after discharge: Ming Harrison, spouse, * Verbal permission to speak to the caregivers and representatives has been obtained from the patient. Yes * Community resources currently utilized None * Additional services required to return to the preadmission environment? Yes * Can the patient safely return to the preadmission environment? Yes * Has this patient been hospitalized within the prior 30 days at any hospital? No Coverage Notice Reviewer: [id number] Yusef Jenkins Notice Issued Date-Time: 12/04/2019 18:00 Notice Type: Patient Choice Letter Notice Delivered To: Patient Relationship to Patient: Self Dispensing And Measuring Optician Name: Jacquelyn Elena Delivery Method: HAND - Hand Delivered Amanda Days: Prior Verbal Notification: Recipient Understood Notice: Yes Recipient Signature: Yes Med Rec Note Co-signed by Attending: Coverage Notice Comment: Patient choice for [facility] signed/delivered to patient. Original to chart. Reviewer: [email or web address] - Ca Sosa Notice Issued Date-Time: 12/05/2019 14:00 Notice Type: IM Discharge Notice Notice Delivered To: Family Member Relationship to Patient: Spouse Dispensing And Measuring Optician Name: Ming Harrison Delivery Method: HAND - Hand Delivered Amanda Days: Prior Verbal Notification: Recipient Understood Notice: Yes Recipient Signature: Yes Med Rec Note Co-signed by Attending: Coverage Notice Comment: Last DP export: 12/05/19 1:27 pm Patient Name: JACQUELYN HARRISON Page [phone] at 0925 All edits/amendments must be made on the electronic document DICTATION DATE: 12/06/19923 WHEELCHAIR VAN DRIVER: SHENG 12/06/19923 RPT#: [id number] DC DATE:12/05/19 STATUS: DIS IN [facility] [address] [place] [address] END OF REPORT
== END 2019-12-05 15:41 | disposition home health service (06) | DRG 470 ==
LOC: D.SDCHOLD 11-28 10:00 → D.M3 12-04 07:01 → D.SDCHOLD 12-04 09:00 → D.M3 12-04 11:39
PROVIDERS: Family Medicine; ADMIT Orthopaedic Surgery; ATTEND Orthopaedic Surgery
PROC: 0SRD0J9 Replacement of Left Knee Joint with Synthetic Substitute, Cemented, Open Approach (ICD-10-PCS; principal; 2019-12-04 09:00)
DX: M17.12 Unilateral primary osteoarthritis, left knee (principal); I48.91 Unspecified atrial fibrillation; R25.1 Tremor, unspecified

== ENCOUNTER 2020-05-06 13:06 | Inpatient (IN) | payer MEDICARE, OTHER ==
[~2020-05-06] VITALS: Ht 160 cm; Wt 65.5 kg
[~2020-05-06 13:06] MED LIST changes: +CBD OIL; +FOLBIC RF TABL1 EACH PO; +JANTOVEN5 MG PO; +KEFLEX500 MG PO; +LOPRESSOR25 MG PO; +LOVENOX40 MG/0.4 SC; +METAMUCIL PACKE1 PKT PO; +OS-CAL500 MG PO; +PROLIA INJ 660 MG/M1 SC; +TUMERIC
[2020-05-28 11:37] LABS: BASOPHILS 0.6 % (0-2); EOSINOPHILS 1.6 % (0-7); HEMATOCRIT 37.1 % (36.0-48.0); HEMOGLOBIN 12.3 g/dL (12-16); IMMATURE GRANULOCYTES 0.2 % (0-5); LYMPHOCYTE ABS# 1.15 10x3/uL (1.18-3.74); MCH 30.4 pg (26.0-34.0); MCHC 33.2 g/dL (31.0-37.0); MCV 91.8 fL (80.0-100.0); MEAN PLATELET VOLUME 9.6 fL (7.4-10.4); NEUTROPHIL ABS# 3.32 10x3/uL (1.56-6.13); NEUTROPHILS 66.6 % (40-80); PLATELET COUNT 249 10x3/uL (130-400); RBC 4.04 10x6/uL (4.00-5.40); RDW 13.3 % (11.5-14.5)
[2020-05-28 11:44] LABS: CALC OSMOLALITY 271 mosm/kg (275-300); CALCIUM 8.8 mg/dL (8.5-10.1); CARBON DIOXIDE 28.6 mmol/L (21.0-32.0); CHLORIDE - SERUM 99 mmol/L (98-107); CREATININE - SERUM 0.7 mg/dL (0.6-1.3); GLUCOSE 102 mg/dL (74-106); POTASSIUM - SERUM 3.8 mmol/L (3.5-5.1); SODIUM 136 mmol/L (136-145); UREA NITROGEN 12 mg/dL (7-18); eGFR NON AFRICAN AMERICAN 86 mL/min (90-120)
[2020-05-28 11:51] LABS: APTT 27.8 SECONDS (22.8-39.4); INR 1.75 (0.85-1.17)
[2020-06-03 09:28] VITALS: BP 132/51; BMI 25.5
[2020-06-03 10:39] LABS: BILIRUBIN NEGATIVE (NEGATIVE); KETONE NEGATIVE (NEGATIVE); NITRITE NEGATIVE (NEGATIVE); UROBILINOGEN NORMAL mg/dL (< 2)
[2020-06-03 10:40] LABS: BACTERIA MODERATE HPF (NONE SEEN); SQUAMOUS EPITHELIAL 0-5 HPF (0-4)
[2020-06-03 11:35] LABS: INR 1.15 (0.85-1.17); PROTIME 13.7 SECONDS (11.6-15.0)
--- NOTE | 2020-06-03 14:31 | NUR ---
RIGHT LEG CLEANSED WITH HIBECLENS AND ALCOHOL FROM THIGHT O TOES CIRCUMFERENTIALLY PRIOR TO PREP. RIGHT LEG THE WIPED DOWN WITH ALCOHOL ALONE PRIOR TO PREP. LEG PREPPED FROM THIGH TO ARNIE CIRCUMFERENTIALLY WITH CHLORAPREP X2. RN IN STERILE ATTIRE FOR PREP. PLASMA BLADE SET TO 6/8 GROUNDING PAD LEFT FLANK GROUNDING PAD LOT # [id number] EXP 10/03/2021 TRAFFIC KEPT TO MINIMUM
[2020-06-03 16:01] VITALS: BP 149/55
[2020-06-03 16:10] VITALS: BP 149/55; Ht 160 cm; Wt 65.5 kg
--- NOTE | 2020-06-03 19:50 | NUR ---
Assumed care of pt after rounds/report. Pt is A&OX4 and verbalizes wants/needs clearly and without difficulty or hesitation. Pt on CPM machine at this time. Dressing to RLE is CDI. IV infusing through per order.
[2020-06-03 20:22] VITALS: BP 138/44
[2020-06-04 00:05] VITALS: BP 120/47
[2020-06-04 03:53] VITALS: BP 127/48
--- NOTE | 2020-06-04 06:23 | NUR ---
Pt resting in bed with CPM in place. No c/o pain/discomfort. Did have mod serosang drainange and Dr. Herman aware of same.
--- NOTE | 2020-06-04 08:30 | NUR ---
PT CALLED FOR BATHROOM, AMBULATED WITH STEADY STABLE GAIT TO BATHROOM AND BACK TO BED
[2020-06-04 09:11] LABS: BASOPHILS 0.1 % (0-2); EOSINOPHILS 0.1 % (0-7); HEMATOCRIT 31.6 % (36.0-48.0); HEMOGLOBIN 10.1 g/dL (12-16); IMMATURE GRANULOCYTES 0.1 % (0-5); LYMPHOCYTES 11.7 % (15-50); MCH 29.9 pg (26.0-34.0); MCV 93.5 fL (80.0-100.0); MEAN PLATELET VOLUME 9.9 fL (7.4-10.4); MONOCYTES 10.4 % (2-11); NEUTROPHIL ABS# 5.99 10x3/uL (1.56-6.13); NEUTROPHILS 77.6 % (40-80); PLATELET COUNT 254 10x3/uL (130-400); RBC 3.38 10x6/uL (4.00-5.40); RDW 13.5 % (11.5-14.5); WBC 7.7 10x3/uL (4.8-10.8)
[2020-06-04 09:14] LABS: INR 1.23 (0.85-1.17); PROTIME 14.4 SECONDS (11.6-15.0)
--- NOTE | 2020-06-04 09:22 | OP ---
PATIENT NAME: DORA HARRISON MEDICAL RECORD: [id number] :43 LOCATION:D.M3 D.1203 ADMISSION DATE:06/03/20 SURGEON: TERRY FELICIANO DO DATE OF OPERATION: 06/03/2020 PROCEDURE PERFORMED: Right total knee arthroplasty. PREOPERATIVE DIAGNOSIS: Right knee osteoarthritis. POSTOPERATIVE DIAGNOSIS: Right knee osteoarthritis. INDICATIONS: Ms. Harrison is a 75-year-old female who has had her left knee done a few months ago. The right knee had been bothering her just as much and she wanted something done surgically. She has tried all manner nonoperative treatment and it was affecting her activities of daily living. She is aware of the risks including infection, bleeding, damage to nerves or vessels, need for further surgery, fracture, failure of implants, loosening of implants, blood clots, and even and she signed the consent. SURGEON: Terry Feliciano DO DESCRIPTION OF PROCEDURE: The patient was taken to the operative suite, laid in supine position. After getting a spinal block by anesthesia, she was given a gram of Ancef and 80 mg gentamicin and the right lower extremity was prepped and draped in sterile fashion. Timeout was performed. Everyone was in agreement with the correct site, side, patient, and procedure. I then began by marking out the incision and covered in Ioban. I then made an incision with a #10 blade scalpel along the anterior knee and then used a fresh 10 blade to go through the capsule, medial parapatellar approach, coagulating any vessels that were bleeding with Aquamantys. I then everted the patella, removed part of the fat pad and milled the patella down and drilled for a 29 patella. I then flexed up the knee, removed the ACL and drilled into the femoral canal and then placed the intramedullary guide in the femur and cut the distal femur off the guide and removed the bone, exposed the tibia, cut off the lateral side of the tibial plateau due to it being a valgus knee and then removed bone from the tibia as well as the menisci. I then had to recut the tibia 2 more mm in order to fit the 10 extension block. The 10 extension block fit well. I removed the pins from the tibial guide and then sized the femur to be a 7. I used an radha wing to ensure there was no notching and cut through the 4-in-1 cutting block on the femur. I removed the bone and exposed the tibia, sized it to be an E. The knee was pinned into place. I then put in the trial femur and a 10 poly in between, ranged the knee. It fit very well. We then did an extension and flexion with varus and valgus stress. I then drilled the lug holes in the femur, removed the femoral trial and then drilled and reamed and punched the tibia, irrigated thoroughly, put extra holes in the tibia for the cement. Mixed the cement, put in the tibia and on the implant impacted in place, removed excess cement and then impacted the press-fit femur on and put a 10 poly in between. Brought the knee to extension. Irrigated out the patella and put the cement on the patella and on the implant and then squeezed it into place, removed the excess cement on it and the tibia now that it was in extension. I then put in a 10% povidone iodine and 500 mL of saline solution, irrigated out with over a liter of normal saline and injected the joint cocktail around in the knee. I then sized again the poly to be a 10. We then removed the poly trial and put in the actual 10 medial congruent bearing and put in [place] and vancomycin and tobramycin powder. I then closed the capsule with #1 Vicryl in [id number] fashion. Jose OPERATIVE REPORT [id number] DORA HARRISON, certified surgical first coat operator then closed the rest of the capsule with a Quill stitch in a running stitch. Jose closed the skin with 2-0 Vicryl in an inverted interrupted fashion and placed a ZipLine, Adaptic, 4 x 4, ABD, cast padding and Billy wrap on the knee. She was then awakened and taken to recovery in stable condition. BLOOD LOSS: Approximately 250 mL. COMPLICATIONS: None. TRANSINT:[id number] Voice Confirmation ID: [id number] DOCUMENT ID: [id number] TERRY FELICIANO DO at 0922 CC: [id number] DICTATION DATE: 06/03/20 142 TOOL AND DIE MAKER: 06/03/20 416 ADM IN [place] [id number] [place] [address]
[2020-06-04 09:34] LABS: ALBUMIN 3.1 g/dL (3.4-5.0); ALKALINE PHOSPHATASE 78 U/L (30-120); ALT (SGPT) 22 U/L (10-68); CALC OSMOLALITY 271 mosm/kg (275-300); CALCIUM 7.1 mg/dL (8.5-10.1); CARBON DIOXIDE 24.2 mmol/L (21.0-32.0); CHLORIDE - SERUM 105 mmol/L (98-107); CREATININE - SERUM 0.6 mg/dL (0.6-1.3); GLUCOSE 104 mg/dL (74-106); MAGNESIUM - SERUM 2.1 mg/dL (1.8-2.4); PHOSPHOROUS 2.2 mg/dL (2.5-4.9); SODIUM 136 mmol/L (136-145); UREA NITROGEN 12 mg/dL (7-18); eGFR NON AFRICAN AMERICAN > 90 mL/min (90-120)
[2020-06-04 12:10] VITALS: BP 121/44
--- NOTE | 2020-06-04 15:35 | NUR ---
PT LAYING IN BED RESTING, FACE LOOKS SLIGHTLY FLUSHED, ASKED PT IF SHE WAS FEELING OK, PT STATES SHE IS FEELING FINE, MEDS GIVEN, FRESH ICE PACK GIVEN
--- NOTE | 2020-06-04 19:05 | NUR ---
PT PLACED ON CPM PER THIS RN AND MEHRDAD CRANE RN, INFORMED PT THAT I WILL BE BACK SHORTLY TO DO ASSESSMENT, PT VERBALIZES UNDERSTANDING, REQUESTED AND SERVED FRESH H20, DENIES FURTHER NEEDS
[2020-06-04 20:00] VITALS: BP 151/48
--- NOTE | 2020-06-04 20:00 | NUR ---
ASSESSMENT PER FLOW SHEET, VS OBTAINED, SALINE LOCK IN RIGHT AC AND LEFT HAND INTACT WITH NO REDNESS OR EDEMA, DRESSING TO RIGHT KNEE INTACT, CONTINUES IN CPM, PT STATES "IT FEELS SO MUCH BETTER WHEN IT'S IN THIS MACHINE", PTS DAUGHTER STATES "SHE HAS ONE OF THOSE AT HOME AND REALLY LIKES IT", PT REPORTS FLATUS, NO BM AND VOIDING WITH NO DIFFICULTY, RATES PAIN 5/10, BUT STATES "IT'S TOLERABLE RIGHT NOW", INFORMED PT THAT I WILL CHECK TO SEE WHEN PAIN MED IS DUE AND BRING IT IN NOW IF DUE, OR I CAN BRING IT IN, IF DUE, WITH 9PM MEDS, PTS STATES "YOU CAN BRING IT IN WITH MY OTHER MEDS", PT DENIES FURTHER NEEDS
--- NOTE | 2020-06-04 21:37 | NUR ---
PT UP TO BR VIA WALKER WITH ASSISTANCE, VOIDED WITH NO DIFFICULTY, PT BACK TO BED, PLACED BACK IN CPM, OBTAINED BP, ADM 2100 MEDS AND PAIN MED PER MD ORDERS, SEE EMAR, PT DENIES FURTHER NEEDS
--- NOTE | 2020-06-04 22:05 | NUR ---
PT RESTING WITH EYES CLOSED, AROUSES TO SOFT VERBAL STIMULATION, PT REMOVED FROM CPM, PT DENIES NEEDS AT THIS TIME
--- NOTE | 2020-06-05 00:25 | NUR ---
PT RESTING WITH EYES CLOSED, RESP QUIET, NO DISTRESS NOTED, LEFT UNDISTURBED AT THIS TIME
[2020-06-05 03:05] VITALS: BP 127/40
--- NOTE | 2020-06-05 03:05 | NUR ---
PT ELECTRONIC COMPONENTS ASSEMBLER LIGHT, PT UP TO BR VIA WALKER WITH ASSISTANCE, VOIDED WITH NO DIFFIULTY, PT BACK TO BED, SCD'S RECONNECTED AND WORKING PROPERLY, PT C/O KNEE PAIN, ADM [facility] PER MD ORDERS WITH FRESH H20, SEE EMAR, VS OBTAINED, PT DENIES FURTHER NEEDS
[2020-06-05 07:47] VITALS: BP 149/48
[2020-06-05 07:48] LABS: BASOPHILS 0.3 % (0-2); EOSINOPHILS 0.1 % (0-7); HEMATOCRIT 29.7 % (36.0-48.0); HEMOGLOBIN 9.7 g/dL (12-16); IMMATURE GRANULOCYTES 0.3 % (0-5); LYMPHOCYTE ABS# 0.67 10x3/uL (1.18-3.74); LYMPHOCYTES 9.7 % (15-50); MCH 29.8 pg (26.0-34.0); MCHC 32.7 g/dL (31.0-37.0); MEAN PLATELET VOLUME 9.7 fL (7.4-10.4); NEUTROPHIL ABS# 5.24 10x3/uL (1.56-6.13); NEUTROPHILS 75.6 % (40-80); PLATELET COUNT 224 10x3/uL (130-400); RBC 3.26 10x6/uL (4.00-5.40); RDW 13.3 % (11.5-14.5); WBC 6.9 10x3/uL (4.8-10.8)
[2020-06-05 07:50] LABS: MCV 91.1 fL (80.0-100.0)
[2020-06-05 08:02] LABS: INR 2.21 (0.85-1.17); PROTIME 22.8 SECONDS (11.6-15.0)
[2020-06-05] MEDS ORDERED: LOVENOX40 MG/0.4 SC (08:06)
[2020-06-05] MEDS ORDERED: HYDROCODON-ACE1 EA10 PO (08:07)
[2020-06-05 08:21] LABS: ALBUMIN 2.9 g/dL (3.4-5.0); ALKALINE PHOSPHATASE 65 U/L (30-120); ALT (SGPT) 21 U/L (10-68); BILIRUBIN - TOTAL 0.19 mg/dL (0.2-1.3); CALC OSMOLALITY 264 mosm/kg (275-300); CALCIUM 7.3 mg/dL (8.5-10.1); CARBON DIOXIDE 25.5 mmol/L (21.0-32.0); CHLORIDE - SERUM 101 mmol/L (98-107); CREATININE - SERUM 0.5 mg/dL (0.6-1.3); GLUCOSE 116 mg/dL (74-106); MAGNESIUM - SERUM 2.3 mg/dL (1.8-2.4); PHOSPHOROUS 2.3 mg/dL (2.5-4.9); POTASSIUM - SERUM 3.6 mmol/L (3.5-5.1); PROTEIN - SERUM 5.9 g/dL (6.4-8.2); SODIUM 133 mmol/L (136-145); UREA NITROGEN 7 mg/dL (7-18); eGFR NON AFRICAN AMERICAN > 90 mL/min (90-120)
--- NOTE | 2020-06-05 09:00 | NUR ---
RESTING QUIETLY IN BED WITH EYES CLOSED. NO NEEDS NOTED.
--- NOTE | 2020-06-05 10:40 | MORECARE ---
CASE MANAGEMENT DISCHARGE SUMMARY PATIENT: DORA DUFFY UNIT: [id number] ADM DATE: 06/03/20 AGE: 75 : 44 SEX: F ROOM/BED: D.1203 AUTHOR: BHAVIN,DOC PHYSICIAN: REFERRING PHYSICIAN: KOREY FELICIANO DO DATE OF SERVICE: 06/05/20 Discharge Plan Patient Name: DORA DUFFY Facility: [facility]:[place] : 1945 Planned Disposition: Anticipated Discharge Date: Discharge Date: Expected LOS: Initial Reviewer: [email or web address] Initial Review Date: 06/03/2020 Generated: 06/05/20 11:39 am Comments DCP- Discharge Planning Updated by [email or web address]: Christie Mejia on 06/05/20 9:[address] Patient Name: DORA DUFFY Admission Status: Elective Accout number: [id number] Admission Date: 06-03-2020 : 1945 Admission Diagnosis:UNILATERAL PRIMARY OSTEOARTHRITIS, RIGHT KNEE Attending: KOREY FELICIANO Current LOS: 2 Anticipated DC Date: Planned Disposition: Primary Insurance: MEDICARE A & B Discharge Planning Comments: CM met with patient at bedside after obtaining verbal consent. CM discussed availability / needs of home health, REHAB and medical equipment. PATIENT'S EQUIPMENT HAS ALREADY BEEN DELIVERED. DENISA SIGNED FOR [employer]. I HAVE CONTACTED THEM AND FAXED THE REFERRAL. PATIENT PLANS TO DC TO HOME TODAY. CM TO FOLLOW AND ASSIST NEEDED. Operations And Maintenance Specialist: Christie Mejia DCPIA - Discharge Planning Initial Assessment Updated by [email or web address]: Christie Mejia on 06/05/20 10:33 am * Is the patient Alert and Oriented? Yes * PCP [facility] * Pharmacy [facility] * Preadmission Environment Home with Family * ADLs Independent * Other Equipment BSC,SC,WALKER, CPM * List name and contact numbers for known caregivers / representatives who currently or will assist patient after discharge: MICHELLE, , * Community resources currently utilized None * Additional services required to return to the preadmission environment? Yes * Can the patient safely return to the preadmission environment? Yes * Has this patient been hospitalized within the prior 30 days at any hospital? No External Providers External Provider: [facility] Next Contact Date: Service Request Date: Service Type: Resolution: Reviewer: Comments: Coverage Notice Reviewer: [email or web address] Yusef Christie Mejia Notice Issued Date-Time: 06/05/2020 10:35 Notice Type: Patient Choice Letter Notice Delivered To: Patient Relationship to Patient: Supervisor Plasma Name: Delivery Method: - Amanda Days: Prior Verbal Notification: Recipient Understood Notice: Recipient Signature: Med Rec Note Co-signed by Attending: Coverage Notice Comment: LILLIE Patient Name: DORA DUFFY Page [id number] at 1040 All edits/amendments must be made on the electronic document DICTATION DATE: 06/05/20 1040 SOLDERER ASSEMBLY REPAIR: SHENG 06/05/20 1040 RPT#: [id number] DC DATE: STATUS: ADM IN [facility] [address] [place] [address] END OF REPORT
--- NOTE | 2020-06-05 10:57 | NUR ---
UP TO BR IWTH ONE PERSON MIN ASSIST. VOIDED CLEAR YELLOW URINE WITHOUT DIFFICULTY. SL TO LEFT HAND D/C WITH CATHETER INTACT. ASSISTED TO DRESS PER STAFF.
--- NOTE | 2020-06-05 11:16 | NUR ---
DISCHARGED TO HOME AMBULATORY WITH . DISCHARGE INSTRUCTIONS GIVEN BOTH VERBALLY AND WRITTEN. ALL QUESTIONS ANSWERED. PATIENT VERBALIZED UNDERSTANDING OF SAME. NEEDED PRESCRIPTIONS GIVEN TO PATIENT. ALL BELONGINGS WITH PATIENT.
--- NOTE | 2020-06-05 14:43 | MORECARE ---
CASE MANAGEMENT DISCHARGE SUMMARY PATIENT: DORA DUFFY UNIT: [id number] ADM DATE: 06/03/20 AGE: 75 : 44 SEX: F ROOM/BED: D.1203 AUTHOR: SUKHI DELCID PHYSICIAN: REFERRING PHYSICIAN: KOREY FELICIANO DO DATE OF SERVICE: 06/05/20 Discharge Plan Patient Name: DORA DUFFY Facility: [facility]:[place] : 1945 Planned Disposition: Anticipated Discharge Date: Discharge Date: 06/05/2020 Expected LOS: Initial Reviewer: [email or web address] Initial Review Date: 06/03/2020 Generated: 06/05/20 3:42 pm Comments DCP- Discharge Planning Updated by [email or web address]: Christie Mejia on 06/05/20 9:[address] Patient Name: DORA DUFFY Admission Status: Elective Accout number: [id number] Admission Date: 06-03-2020 : 1945 Admission Diagnosis:UNILATERAL PRIMARY OSTEOARTHRITIS, RIGHT KNEE Attending: KOREY FELICIANO Current LOS: 2 Anticipated DC Date: Planned Disposition: Primary Insurance: MEDICARE A & B Discharge Planning Comments: CM met with patient at bedside after obtaining verbal consent. CM discussed availability / needs of home health, REHAB and medical equipment. PATIENT'S EQUIPMENT HAS ALREADY BEEN DELIVERED. DENISA SIGNED FOR [facility]. I HAVE CONTACTED THEM AND FAXED THE REFERRAL. PATIENT PLANS TO DC TO HOME TODAY. CM TO FOLLOW AND ASSIST NEEDED. Mainframe Analyst: Christie Mejia DCPIA - Discharge Planning Initial Assessment Updated by [email or web address]: Christie Mejia on 06/05/20 10:33 am * Is the patient Alert and Oriented? Yes * PCP [facility] * Pharmacy [facility] * Preadmission Environment Home with Family * ADLs Independent * Other Equipment BSC,SC,WALKER, CPM * List name and contact numbers for known caregivers / representatives who currently or will assist patient after discharge: ZEN MARTINEZ, * Community resources currently utilized None * Additional services required to return to the preadmission environment? Yes * Can the patient safely return to the preadmission environment? Yes * Has this patient been hospitalized within the prior 30 days at any hospital? No Coverage Notice Reviewer: [email or web address] Yusef Mejia Notice Issued Date-Time: 06/05/2020 10:35 Notice Type: Patient Choice Letter Notice Delivered To: Patient Relationship to Patient: Skiver Heel Tap Name: Delivery Method: - Amanda Days: Prior Verbal Notification: Recipient Understood Notice: Recipient Signature: Med Rec Note Co-signed by Attending: Coverage Notice Comment: LILLIE HH Last DP export: 06/05/20 9:40 am Patient Name: DORA DUFFY Page [phone] at 1443 All edits/amendments must be made on the electronic document DICTATION DATE: 06/05/20 1442 MACHINE STRAW HAT PRESSER: SHENG 06/05/20 1442 RPT#: [id number] DC DATE:06/05/20 STATUS: DIS IN [facility] [address] [place] [address] END OF REPORT
== END 2020-06-05 11:30 | disposition home health service (06) | DRG 470 ==
LOC: D.SDCHOLD 06-03 08:55 → D.M3 06-03 08:55 → D.MS 06-03 11:00 → D.M3 06-03 15:26 → D.MS 06-03 16:15 → D.OPS 06-03 16:15 → EDSTATUS 06-03 16:15 → D.MS 06-03 18:35 → D.M3 06-05 11:30
PROVIDERS: Anesthesiology; Family Medicine; ADMIT Orthopaedic Surgery; ATTEND Orthopaedic Surgery
PROC: 0SRC0JZ Replacement of Right Knee Joint with Synthetic Substitute, Open Approach (ICD-10-PCS; principal; 2020-06-03 11:00)
DX: M17.11 Unilateral primary osteoarthritis, right knee (principal); Z20.822 Contact with and (suspected) exposure to COVID-19; I48.91 Unspecified atrial fibrillation; L30.9 Dermatitis, unspecified; G25.0 Essential tremor